=== PATIENT | female | born 1990 | race American Indian/Alaskan Native ===

== ENCOUNTER 2021-05-14 15:34 | Emergency (ER) | payer MEDICARE ==
[2021-05-14 16:07] VITALS: BP 130/85
[2021-05-14] MEDS ORDERED: PROCHLORPERAZINE EDISYLATE 10 MG/2 ML VIAL IV ONE (16:41)
[2021-05-14] MEDS ORDERED: FAMOTIDINE 20 MG/2 ML INJ IV ONE (16:41)
[2021-05-14 17:27] LABS: Basophils % (Auto) 0.3 % (0.0-1.8); Eosinophils % (Auto) 0.5 % (0.0-4.3); Hemoglobin 13.1 gm/dl (10.1-14.3); Lymphocytes # (Auto) 0.6 K/mm3 (1.2-5.4); Lymphocytes % (Auto) 6.3 % (13.4-35.0); Mean Corpuscular HGB Conc 33 % (30-34); Mean Corpuscular Volume 83 fl (79-97); Monocytes % (Auto) 10.8 % (0.0-7.3); Platelet Count 248 K/mm3 (140-440); Red Blood Count 4.85 M/mm3 (3.65-5.03)
[2021-05-14 17:41] LABS: Alanine Aminotransferase 9 units/L (7-56); Albumin 3.8 g/dL (3.9-5); Blood Urea Nitrogen 6 mg/dL (7-17); Calcium 9.6 mg/dL (8.4-10.2); Hemolysis Index 5
[2021-05-14 17:42] LABS: BUN/Creatinine Ratio 9
--- NOTE | 2021-05-14 19:06 | Emergency Department Report ---
ED N/V/D HPI - General Chief complaint: Pain General Stated complaint: CHEST PAIN, FEVER, COLD CHILLS, BODY ACHES Source: patient Mode of arrival: Ambulatory Limitations: No Limitations - History of Present Illness Initial comments: Patient is a A0 30-year-old -[place]inames[place] female who is approximately 9 weeks gestation, and with a history of hypertension, [id number] diabetes, GERD, cervical cancer in remission, asthma, kidney stones, anxiety and depression, PTSD, and bipolar disorder who presents to the ED with complaint of acute onset persistent intractable nausea and vomiting, diffuse body aches and pains, nasal congestion, persistent dry cough, fever and chills, lack of appetite and generalized weakness for the last 12 days, worse in the last 12 toy rs. Patient states that she has not been able to keep anything down in the last 12 hours because of persistent nausea and vomiting. Patient denies diarrhea, dysuria, urinary frequency and urgency, vaginal bleeding, vaginal discharge, chest pain or shortness of breath, hematemesis, hematochezia, dizziness, syncope or change in vision and headache. MD complaint: nausea, vomiting, other (Fever, chills, body aches; cough) -: Sudden, days(s) (2) Description of Vomiting: food contents Description of Diarrhea: other (none) Associated Abdominal Pain: No Location: diffuse Radiation: none Severity: moderate Pain Scale: 6 Quality: aching, dull Consistency: constant Improves with: none Context: possible food poisoning, other () Associated Symptoms: denies other symptoms, myalgias, cough, fever/chills, headaches, loss of appetite, malaise, nausea/vomiting. denies: chest pain, diaphoresis, rash, dysuria, shortness of breath, syncope, weakness, other - Related Data Home Medications Medication Instructions Recorded Confirmed Last Taken valACYclovir [Valtrex] 500 mg PO DAILY 11/29/14 09/04/15 09/04/15 06:30 Omeprazole [PriLOSEC] 40 mg PO DAILY 04/17/15 09/04/15 09/04/15 06:30 Oxycodone HCl/Acetaminophen 1 each PO Q6HR PRN 04/17/15 09/04/15 09/03/15 [Percocet 10-325 mg] QUEtiapine [SEROquel] 300 mg PO QHS 04/17/15 09/04/15 09/03/15 ALPRAZolam [Xanax TAB] 0.5 mg PO TID PRN 09/03/15 09/04/15 09/03/15 Oxybutynin [Ditropan] 5 mg PO TID 09/03/15 09/04/15 09/03/15 Sertraline [Zoloft] 100 mg PO QDAY 09/03/15 09/04/15 09/03/15 Simvastatin (Nf) [Zocor TAB] 10 mg PO QHS 09/03/15 09/04/15 09/03/15 Previous Rx's Medication Instructions Recorded Last Taken Type Nitrofurantoin Knott/M-Cryst 100 mg PO Q12HR #20 capsule 04/13/15 09/04/15 06:30 Rx [Macrobid] Ondansetron [Zofran Odt] 4 mg PO Q6H #10 tab.rapdis 04/13/15 09/03/15 Rx HYDROcodone/APAP 10-325 [[place] 0.5 - 1 each PO Q6HR PRN #30 tablet 09/04/15 Unknown Rx 10-325 mg TAB] Oxycodone HCl/Acetaminophen 0.5 - 1 each PO Q6HR PRN #30 tablet 09/04/15 Unknown Rx [Percocet 10-325 mg] Ciprofloxacin HCl [Ciprofloxacin 500 mg PO Q12HR #14 tablet 12/08/15 Unknown Rx TAB] traMADoL [Ultram] 50 mg PO Q4HR PRN #20 tablet 12/08/15 Unknown Rx Acetaminophen [Tylenol] 500 mg PO Q6HR PRN #30 tablet 05/14/21 Unknown Rx Famotidine [Pepcid] 20 mg PO BID #60 tablet 05/14/21 Unknown Rx Metoclopramide [Reglan] 10 mg PO Q8H PRN #30 tab 05/14/21 Unknown Rx Promethazine [Phenergan SUPPOS] 25 mg SC Q6HR PRN #15 supp.rect 05/14/21 Unknown Rx Allergies Allergy/AdvReac Type Severity Reaction Status Date / Time ketorolac [From Toradol] Allergy Shortness Verified 05/14/21 16:08 of Breath Sulfa (Sulfonamide Allergy Swelling Verified 11/29/14 01:12 Antibiotics) acetaminophen [From Tylenol] AdvReac Unknown Verified 05/14/21 16:08 morphine AdvReac Hives Verified 09/03/15 09:44 ED Review of Systems ROS: Stated complaint: CHEST PAIN, FEVER, COLD CHILLS, BODY ACHES Other details as noted in HPI Constitutional: chills, fever, malaise, weakness Eyes: denies: eye pain, eye discharge, vision change ENT: denies: ear pain, throat pain Respiratory: denies: cough, shortness of breath, wheezing Cardiovascular: denies: chest pain, palpitations Endocrine: no symptoms reported Gastrointestinal: nausea, vomiting. denies: abdominal pain, diarrhea Genitourinary: denies: urgency, dysuria, discharge Musculoskeletal: denies: back pain, joint swelling, arthralgia Skin: denies: rash, lesions Neurological: denies: headache, weakness, paresthesias Psychiatric: denies: anxiety, depression Hematological/Lymphatic: denies: easy bleeding, easy bruising ED Past Medical Hx - Past Medical History Hx Hypertension: Yes Hx Diabetes: Yes (type 2) Hx GERD: Yes Hx of Cancer: Yes (cervical) Hx Kidney Stones: Yes Hx Psychiatric Treatment: Yes (depression,ptsd and anxiety) Hx Asthma: Yes Hx HIV: No Additional medical history: kidney stones w/stent placementgenital herpes, anxiety, bipolar, gout, sleep apnea - Surgical History Hx Cholecystectomy: Yes (2013) - Social History Smoking Status: Never Smoker Substance Use Type: None - Medications Home Medications: Home Medications Medication Instructions Recorded Confirmed Last Taken Type valACYclovir [Valtrex] 500 mg PO DAILY 11/29/14 09/04/15 09/04/15 06:30 History Nitrofurantoin Knott/M-Cryst 100 mg PO Q12HR #20 capsule 04/13/15 09/04/15 09/04/15 06:30 Rx [Macrobid] Ondansetron [Zofran Odt] 4 mg PO Q6H #10 tab.rapdis 04/13/15 09/04/15 09/03/15 Rx Omeprazole [PriLOSEC] 40 mg PO DAILY 04/17/15 09/04/15 09/04/15 06:30 History Oxycodone HCl/Acetaminophen 1 each PO Q6HR PRN 04/17/15 09/04/15 09/03/15 History [Percocet 10-325 mg] QUEtiapine [SEROquel] 300 mg PO QHS 04/17/15 09/04/15 09/03/15 History ALPRAZolam [Xanax TAB] 0.5 mg PO TID PRN 09/03/15 09/04/15 09/03/15 History Oxybutynin [Ditropan] 5 mg PO TID 09/03/15 09/04/15 09/03/15 History Sertraline [Zoloft] 100 mg PO QDAY 09/03/15 09/04/15 09/03/15 History Simvastatin (Nf) [Zocor TAB] 10 mg PO QHS 09/03/15 09/04/15 09/03/15 History HYDROcodone/APAP 10-325 [[place] 0.5 - 1 each PO Q6HR PRN #30 tablet 09/04/15 Unknown Rx 10-325 mg TAB] Oxycodone HCl/Acetaminophen 0.5 - 1 each PO Q6HR PRN #30 tablet 09/04/15 Unknown Rx [Percocet 10-325 mg] Ciprofloxacin HCl [Ciprofloxacin 500 mg PO Q12HR #14 tablet 12/08/15 Unknown Rx TAB] traMADoL [Ultram] 50 mg PO Q4HR PRN #20 tablet 12/08/15 Unknown Rx Acetaminophen [Tylenol] 500 mg PO Q6HR PRN #30 tablet 05/14/21 Unknown Rx Famotidine [Pepcid] 20 mg PO BID #60 tablet 05/14/21 Unknown Rx Metoclopramide [Reglan] 10 mg PO Q8H PRN #30 tab 05/14/21 Unknown Rx Promethazine [Phenergan SUPPOS] 25 mg SC Q6HR PRN #15 supp.rect 05/14/21 Unknown Rx ED Physical Exam - General Limitations: No Limitations General appearance: alert, in no apparent distress, anxious - Head Head exam: Present: atraumatic, normocephalic, normal inspection - Eye Eye exam: Present: normal appearance, PERRL, EOMI Pupils: Present: normal accommodation - ENT ENT exam: Present: normal exam, normal orophraynx, mucous membranes moist, TM's normal bilaterally, normal external ear exam - Neck Neck exam: Present: normal inspection, full ROM - Respiratory Respiratory exam: Present: normal lung sounds bilaterally. Absent: respiratory distress, wheezes, rales, rhonchi, chest wall tenderness, accessory muscle use, other - Cardiovascular Cardiovascular Exam: Present: normal rhythm, tachycardia, normal heart sounds. Absent: systolic murmur, diastolic murmur, rubs, gallop - GI/Abdominal GI/Abdominal exam: Present: soft, normal bowel sounds. Absent: tenderness, guarding, rebound, hyperactive bowel sounds, hypoactive bowel sounds, organomegaly - Extremities Exam Extremities exam: Present: normal inspection, full ROM, normal capillary refill - Back Exam Back exam: Present: normal inspection, full ROM. Absent: tenderness, CVA tenderness (R), CVA tenderness (L), muscle spasm, paraspinal tenderness, vertebral tenderness - Neurological Exam Neurological exam: Present: alert, oriented X3, CN II-XII intact, normal gait, reflexes normal - Psychiatric Psychiatric exam: Present: normal affect, normal mood - Skin Skin exam: Present: warm, dry, intact, normal color. Absent: rash ED Course Vital Signs 05/14/21 16:01 Temperature 100.0 F H Pulse Rate 112 H Respiratory 20 Rate Blood Pressure 130/85 O2 Sat by Pulse 97 Oximetry ED Medical Decision Making - Lab Data Result diagrams: 05/14/21 17:06 05/14/21 17:06 - Medical Decision Making This is a A0 30-year-old -[place] female who is approximately 9 weeks gestation, and with a history of hypertension, xoh-[id number]-[id number] diabetes, GERD, cervical cancer in remission, asthma, kidney stones, anxiety and depression, PTSD, and bipolar disorder who presents to the ED with complaint of acute onset persistent intractable nausea and vomiting, diffuse body aches and pains, nasal congestion, persistent dry cough, fever and chills, lack of appetite and generalized weakness for the last 12 days, worse in the last 12 hours. Patient states that she has not been able to keep anything down in the last 12 hours because of persistent nausea and vomiting. In the ED, patient is alert and oriented x3 and is not in any distress, febrile and tachycardic in triage. Patient was treated in the ED with antiemetics, also given Pepcid. Lab test results were reviewed and are all nonactionable. On reevaluation, patient was discharged home on medication and advised to follow-up with RADIATION THERAPY TECHNOLOGIST physician in 3 to 5 days for reevaluation or return to the ED immediately if symptoms get worse. - Differential Diagnosis Gastroenteritis; flulike symptoms; GERD; hyperemesis gravidarum; UTI Critical care attestation.: If time is entered above; I have spent that time in minutes in the direct care of this critically ill patient, excluding procedure time. ED Disposition Clinical Impression: Hyperemesis gravidarum, Flu-like symptoms Disposition: TO HOME OR SELFCARE Is pt being admited?: No Does the pt Need Aspirin: No Condition: Stable Instructions: Morning Sickness, [id number], General Headache Without Cause, [id number], Hyperemesis Gravidarum Additional Instructions: All lab test results were reviewed and are all nonactionable. Therefore maintain a clear liquid diet for 12 to 24 hours, take medication with food, drink plenty of fluids and follow-up with your RADIATION THERAPY TECHNOLOGIST physician in 5 to 7 days for reevaluation. Return to the ED immediately if symptoms get worse. Prescriptions: Acetaminophen [Tylenol] 500 mg PO Q6HR PRN #30 tablet PRN Reason: Pain , Severe (7-10) Famotidine [Pepcid] 20 mg PO BID #60 tablet Promethazine [Phenergan SUPPOS] 25 mg SC Q6HR PRN #15 supp.rect PRN Reason: Nausea And Vomiting Metoclopramide [Reglan] 10 mg PO Q8H PRN #30 tab PRN Reason: Nausea Forms: Work/School Release Form(ED) Time of Disposition: 20:43 Print Language: YORUBA
[2021-05-14 20:26] LABS: Bacteria,Urine 1+ /HPF (Negative); Bilirubin,Urine NEG (Negative); Blood,Urine NEG (Negative); Color,Urine Yellow (Yellow); Mucus,Urine FEW /HPF; Protein,Urine <15 mg/dL mg/dL (Negative)
== END 2021-05-14 21:10 | disposition home or self-care (01) ==
LOC: ED 15:34
DX: O21.0 Mild hyperemesis gravidarum (principal); O24.911 Unspecified diabetes mellitus in pregnancy, first trimester; O99.511 Diseases of the respiratory system complicating pregnancy, first trimester; O16.1 Unspecified maternal hypertension, first trimester; O99.341 Other mental disorders complicating pregnancy, first trimester; O99.611 Diseases of the digestive system complicating pregnancy, first trimester; R07.9 Chest pain, unspecified; R50.9 Fever, unspecified; K21.9 Gastro-esophageal reflux disease without esophagitis; J45.909 Unspecified asthma, uncomplicated; F41.9 Anxiety disorder, unspecified; F32.9 Major depressive disorder, single episode, unspecified; Z79.899 Other long term (current) drug therapy; Z88.8 Allergy status to other drugs, medicaments and biological substances; Z88.2 Allergy status to sulfonamides; Z90.49 Acquired absence of other specified parts of digestive tract; Z3A.09 9 weeks gestation of pregnancy
CPT/HCPCS: 36415; 80053; 81001; 84702; 85025; 96374; 96375; 99283; J0780

== ENCOUNTER 2021-05-17 20:17 | Emergency (ER) | payer MEDICARE ==
[2021-05-18] VITALS: BP 142/73
== END 2021-05-18 02:07 | disposition home or self-care (01) ==
LOC: ED 20:17
DX: O99.511 Diseases of the respiratory system complicating pregnancy, first trimester (principal); J06.9 Acute upper respiratory infection, unspecified; Z3A.01 Less than 8 weeks gestation of pregnancy; R05 Cough; J01.10 Acute frontal sinusitis, unspecified; I10 Essential (primary) hypertension; E11.8 Type 2 diabetes mellitus with unspecified complications; K21.9 Gastro-esophageal reflux disease without esophagitis; Z87.442 Personal history of urinary calculi; F32.9 Major depressive disorder, single episode, unspecified; F43.10 Post-traumatic stress disorder, unspecified; J45.909 Unspecified asthma, uncomplicated; Z98.890 Other specified postprocedural states; Z88.2 Allergy status to sulfonamides; Z88.5 Allergy status to narcotic agent; Z88.6 Allergy status to analgesic agent
CPT/HCPCS: 36415; 80053; 84703; 85025; 99283; Q0169; Q0162

== ENCOUNTER 2022-01-25 23:04 | Emergency (ER) | payer MEDICARE ==
[2022-01-25 23:46] LABS: Basophils # (Auto) 0.1 K/mm3 (0.0-0.1); Basophils % (Auto) 0.9 % (0.0-1.8); Eosinophils # (Auto) 0.2 K/mm3 (0.0-0.4); Eosinophils % (Auto) 2.4 % (0.0-4.3); Hematocrit 41.6 % (30.3-42.9); Hemoglobin 13.5 gm/dl (10.1-14.3); Lymphocytes # (Auto) 3.5 K/mm3 (1.2-5.4); Lymphocytes % (Auto) 34.7 % (13.4-35.0); Mean Corpuscular HGB Conc 32 % (30-34); Mean Corpuscular Volume 81 fl (79-97); Monocytes # (Auto) 0.7 K/mm3 (0.0-0.8); Monocytes % (Auto) 7.4 % (0.0-7.3); Platelet Count 243 K/mm3 (140-440); Red Blood Count 5.13 M/mm3 (3.65-5.03)
[2022-01-26 00:03] LABS: Alanine Aminotransferase 9 units/L (7-56); Albumin 4.2 g/dL (3.9-5); BUN/Creatinine Ratio 13; Blood Urea Nitrogen 14 mg/dL (7-17); Calcium 9.6 mg/dL (8.4-10.2); Hemolysis Index 5
[2022-01-26 00:30] LABS: Calcium Oxalate Crystals,Urine 3+
[2022-01-26 00:34] LABS: Bilirubin,Urine Color Interference (Negative); Blood,Urine Color Interference (Negative); Color,Urine Red (Yellow); RBC,Urine > 182.0 /HPF (0.0-6.0); WBC,Urine > 182.0 /HPF (0.0-6.0)
[2022-01-26 00:35] LABS: PH,Urine TNR (5.0-7.0); Protein,Urine TNR mg/dL (Negative); Urobilinogen,Urine TNR mg/dL (<2.0)
[2022-01-26] MEDS ORDERED: HYDROmorphone 1 MG/1 ML INJ IM ONE (03:45)
[2022-01-26] MEDS ORDERED: LIDOCAINE-MPF (1%) 10 MG/1 ML VIAL 5 ML INFILTRATI ONE (03:45)
[2022-01-26] MEDS ORDERED: ONDANSETRON 4 MG ODT TAB PO ONE (03:45)
--- NOTE | 2022-01-26 05:42 | Emergency Department Report ---
ED Female HPI - General Chief complaint: Vaginal Bleeding Stated complaint: HEAVY BLEEDING AND PAIN/DELIVER BABY 6WEEKS AGO Source: patient Mode of arrival: Ambulatory Limitations: No Limitations - History of Present Illness MD Complaint: vaginal bleeding, pelvic pain, other (Low back pain) -: Sudden, days(s) (3) Location: suprapubic, other (Vaginal) Radiation: non-radiating Severity: severe Severity scale (0 -10): 8 Quality: cramping, sharp, aching Consistency: constant Improves with: none Worsens with: menstrual period Are you Now?: No (6 weeks ) Associated Symptoms: denies other symptoms, vaginal bleeding, abdominal pain (Suprapubic pain). denies: nausea/vomiting, fever/chills, headaches, loss of appetite, hematuria, shortness of breath, weakness - Related Data Sexually active: No : 2 Para: 2 A: 0 Home Medications Medication Instructions Recorded Confirmed Last Taken valACYclovir [Valtrex] 500 mg PO DAILY 11/29/14 12/12/21 09/04/15 06:30 Aspirin [[place]] 81 mg PO QDAY 12/12/21 12/12/21 Unknown labetaloL [Labetalol 100mg TAB] 100 mg PO BID 12/12/21 12/12/21 Unknown lamoTRIgine [lamoTRIgine ER] 50 mg PO QDAY 12/12/21 12/12/21 Unknown Previous Rx's Medication Instructions Recorded Last Taken Type labetaloL [Labetalol 100mg TAB] 100 mg PO BID #60 each 12/13/21 Unknown Rx cephALEXin [Keflex] 500 mg PO Q6HR #40 capsule 01/26/22 Unknown Rx traMADoL [Ultram] 50 mg PO Q6HR PRN #12 tablet 01/26/22 Unknown Rx Allergies Allergy/AdvReac Type Severity Reaction Status Date / Time ketorolac [From Toradol] Allergy Shortness Verified 12/09/21 16:46 of Breath NSAIDS (Non-Steroidal Allergy Hives Verified 12/09/21 17:46 Anti-Inflamma Sulfa (Sulfonamide Allergy Swelling Verified 12/09/21 16:46 Antibiotics) acetaminophen [From Tylenol] AdvReac Unknown Verified 12/09/21 16:46 morphine AdvReac Hives Verified 12/09/21 16:46 ED Review of Systems ROS: Stated complaint: HEAVY BLEEDING AND PAIN/DELIVER BABY 6WEEKS AGO Other details as noted in HPI ED Past Medical Hx - Past Medical History Previous Medical History?: Yes Hx Hypertension: Yes Hx Congestive Heart Failure: No Hx Diabetes: Yes Hx Deep Vein Thrombosis: No Hx GERD: Yes Hx Renal Disease: No Hx Sickle Cell Disease: No Hx Seizures: No Hx Kidney Stones: Yes Hx Psychiatric Treatment: Yes (depression,ptsd and anxiety) Hx Asthma: Yes Hx COPD: No Hx HIV: No Additional medical history: kidney stones w/stent placement, RT toe sx x 2, genital herpes, anxiety, bipolar, gout, sleep apnea, cystic fibrosis - Surgical History Past Surgical History?: Yes Hx Cholecystectomy: Yes (2013) - Social History Smoking Status: Never Smoker - Medications Home Medications: Home Medications Medication Instructions Recorded Confirmed Last Taken Type valACYclovir [Valtrex] 500 mg PO DAILY 11/29/14 12/12/21 09/04/15 06:30 History Aspirin [[place]] 81 mg PO QDAY 12/12/21 12/12/21 Unknown History labetaloL [Labetalol 100mg TAB] 100 mg PO BID 12/12/21 12/12/21 Unknown History lamoTRIgine [lamoTRIgine ER] 50 mg PO QDAY 12/12/21 12/12/21 Unknown History labetaloL [Labetalol 100mg TAB] 100 mg PO BID #60 each 12/13/21 Unknown Rx cephALEXin [Keflex] 500 mg PO Q6HR #40 capsule 01/26/22 Unknown Rx traMADoL [Ultram] 50 mg PO Q6HR PRN #12 tablet 01/26/22 Unknown Rx ED Physical Exam - General Limitations: No Limitations ED Course Vital Signs 01/25/22 01/25/22 23:07 23:11 Temperature 98.3 F Pulse Rate 87 Respiratory 16 Rate Blood Pressure 152/95 O2 Sat by Pulse 89 98 Oximetry ED Medical Decision Making - Lab Data Result diagrams: 01/25/22 23:22 01/25/22 23:22 Critical care attestation.: If time is entered above; I have spent that time in minutes in the direct care of this critically ill patient, excluding procedure time. ED Disposition Clinical Impression: hemorrhage of vagina, Acute urinary tract infection, Severe dysmenorrhea Disposition: 01 HOME / SELF CARE / HOMELESS Is pt being admited?: No Does the pt Need Aspirin: No Condition: Stable Instructions: Urinary Tract Infection, Adult, [id number], Dysmenorrhea, [id number], Hemorrhage Additional Instructions: Take medication with food, drink plenty of fluids and follow-up with your primary care physician or [employer] physician in 7 to 10 days for reevaluation. Return to the ED immediately if symptoms get worse. Prescriptions: cephALEXin [Keflex] 500 mg PO Q6HR #40 capsule traMADoL [Ultram] 50 mg PO Q6HR PRN #12 tablet PRN Reason: Pain Referrals: VINICIUS ALLISON MD [Primary Care Provider] - 3-5 Days PASHA RUBIN MD [Staff Physician] - 3-5 Days Time of Disposition: 05:40 Print Language: HEBREW
[2022-01-26 06:08] VITALS: BP 122/78
== END 2022-01-26 06:07 | disposition home or self-care (01) ==
LOC: ED 23:04
DX: O72.1 Other immediate postpartum hemorrhage (principal); O86.20 Urinary tract infection following delivery, unspecified; N39.0 Urinary tract infection, site not specified; N94.6 Dysmenorrhea, unspecified; I10 Essential (primary) hypertension; E11.9 Type 2 diabetes mellitus without complications; K21.9 Gastro-esophageal reflux disease without esophagitis; J45.909 Unspecified asthma, uncomplicated; F32.9 Major depressive disorder, single episode, unspecified; F41.9 Anxiety disorder, unspecified; Z88.2 Allergy status to sulfonamides; Z88.5 Allergy status to narcotic agent; Z88.8 Allergy status to other drugs, medicaments and biological substances; Z79.899 Other long term (current) drug therapy
CPT/HCPCS: 36415; 80053; 81001; 84702; 85025; 96372; 99283; J0696; J1170; J3490; 96365; 99282; Q0162